=== PATIENT | female | born 1930 | race Caucasian/White ===

== ENCOUNTER 2017-03-03 13:41 | Emergency (ER) | payer MEDICARE, OTHER ==
[2017-03-03 13:59] VITALS: PULSE 70; O2SAT 97
--- NOTE | 2017-03-03 14:01 | ERPHSYRPT ---
- History of Present Illness Time Seen by Provider: 03/03/17 13:56 Source: patient Exam Limitations: clinical condition (dementia) Patient Subjective Stated Complaint: PT HERE PRE AMBULANCE FOR A FALL, PT WAS TRYING TO GET UP AND IS UNSTEADY,PT HAS DEMENTIA AND IS POOR HISTORIAN , PT DENIES ANY COS. 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 normally does not ambulate by self, but tried to walk by herself and fell. Pt. with laceration above R eye and also c/o R hip pain and possible R hip pain. Pt. had a witnessed fall and did not have any LOC. Pt. appropriate and within her normal MS baseline. Pt. without vomiting and moving all extremities spontaneously. States R hip pain but good ROM with R hip movement. Pt. has since put weight on R hip with some discomfort. Occurred: this morning Reason for Fall: lost balance, fell from standing pos Injuries/Pain Location: face, chest, pelvis Loss of Consciousness: no loss of consciousness Quality: dullness Severity of Pain-Max: mild Severity of Pain-Current: mild Modifying Factors: Improves With: immobilization (improves), movement (worsens) Associated Symptoms (Fall): confusion (baseline), No abdominal pain, No back pain, No chest pain, No extremity injury, No lightheadedness, No vision changes Allergies/Adverse Reactions: latex Allergy (Verified 03/03/17 13:58) Penicillins Allergy (Verified 03/03/17 13:58) Sulfa (Sulfonamide Antibiotics) Allergy (Verified 03/03/17 13:58) Home Medications: Donepezil HCl 10 mg [Aricept 10 MG] 10 mg PO HS 06/01/15 [History] Escitalopram Oxalate 10 mg [Lexapro 10 MG] 10 mg PO DAILY 06/01/15 [History] Gabapentin [Neurontin] 300 mg PO HS 06/01/15 [History] Memantine HCl [Namenda Xr] 28 mg PO DAILY 10/29/15 [History] Metformin HCl 500 mg [Glucophage 500 MG] 1 tab PO DAILY 03/15/16 [History] Lorazepam 1 mg [Ativan 1 MG] 1 mg PO HS 03/20/16 [History] Meloxicam 7.5 mg [Mobic 7.5 MG] 7.5 mg PO DAILY 03/03/17 [History] Hx Tetanus, Diphtheria Vaccination/Date Given: Yes Hx Influenza Vaccination/Date Given: Yes Hx Pneumococcal Vaccination/Date Given: Yes Immunizations Up to Date: Yes - Review of Systems Constitutional: No Fever, No Chills Eyes: No Symptoms Ears, Nose, & Throat: No Symptoms Respiratory: No Cough, No Dyspnea Cardiac: No Chest Pain, No Edema, No Syncope Abdominal/Gastrointestinal: No Abdominal Pain, No Nausea, No Vomiting, No Diarrhea Genitourinary Symptoms: No Dysuria Musculoskeletal: Joint Pain (R hip), No Back Pain, No Neck Pain Skin: Other (lac over R eye), No Rash Neurological: No Dizziness, No Focal Weakness, No Sensory Changes Psychological: No Symptoms Endocrine: No Symptoms Hematologic/Lymphatic: No Symptoms Immunological/Allergic: No Symptoms All Other Systems: Reviewed and Negative - Past Medical History Pertinent Past Medical History: Yes Neurological History: Dementia ENT History: No Pertinent History Cardiac History: High Cholesterol, Hypertension Respiratory History: No Pertinent History Endocrine Medical History: No Pertinent History Musculoskeletal History: No Pertinent History GI Medical History: No Pertinent History History: Other Psycho-Social History: Depression Female Reproductive Disorders: No Pertinent History Other Medical History: chronic lumbar pain - Past Surgical History Past Surgical History: Yes Neuro Surgical History: No Pertinent History Cardiac: No Pertinent History Respiratory: No Pertinent History Gastrointestinal: No Pertinent History Genitourinary: No Pertinent History Musculoskeletal: Joint Replacement Female Surgical History: Hysterectomy Other Surgical History: right hip replacement, left shoulder replacement, - Social History Smoking Status: Unknown if ever smoked Exposure to second hand smoke: No Alcohol Use: None Drug Use: none Patient Lives Alone: No Significant Family History: no pertinent family hx - Female History Hx Now: No - Nursing Vital Signs Nursing Vital Signs: Initial Vital Signs Temperature 97.0 F Temperature Source Oral Pulse Rate 70 Respiratory Rate 15 Blood Pressure [] 124/74 Pain Intensity 4 - Rebeca Coma Score Best Eye Response (Rebeca): (4) open spontaneously Best Verbal Response (Novi): (4) confused conversation Best Motor Response (Novi): (6) obeys commands Rebeca Total: 14 - Physical Exam General Appearance: no apparent distress, alert Head Injury: no evidence of injury Eye Exam: PERRL/EOMI, eyes nml inspection, other (2 cm superficial lac over R eye) ENT Exam: airway nml Neck Exam: normal inspection, No tenderness Respiratory/Chest Exam: normal breath sounds, No chest tenderness, No respiratory distress Cardiovascular Exam: normal heart sounds, regular rate/rhythm Gastrointestinal Exam: soft, No tenderness, No distention, No guarding, No ecchymosis Back Exam: normal inspection, No vertebral tenderness Extremity Exam: normal inspection, normal range of motion, pelvis stable, bony point tenderness, hip tenderness (Mild tenderness to R hip joint), No deformities, No pain with movement Neurologic Exam: alert, oriented x 3, cooperative, sensation nml, No motor deficits Skin Exam: normal color, warm, dry Procedures - Laceration/Wound Repair Right Eye Wound Location: Right Wound Length (cm): 2 Wound's Depth, Shape: superficial Wound Explored: clean Irrigated: Yes Hibiclens Prep: Yes Anesthesia: local, 1% Lidocaine Volume Anesthetic (ccs): 4 Wound Debrided: minimal Wound Repaired With: sutures Suture Size/Type: 5-0, nylon Number of Sutures: 6 Layer Closure?: No Sterile Dressing Applied?: Yes Splint Applied?: No Sling Applied?: No - Course Nursing assessment & vital signs reviewed: Yes - Radiology Exams Chest X-ray Interpretation: Discussed w/ radiologist, No Fracture, No Pneumonia Facial X-ray Interpretation: Teleradiologist Report, Negative, No Fracture Hip X-ray Interpretation: Teleradiologist Report, Negative, No Fracture Ordered Tests: Active Orders 24 hr Category Date Time Status CHEST 1 VIEW (PORTABLE) Stat Exams 03/03/17 14:01 Completed FACIAL BONES (MINIMUM 3 VIEWS) Stat Exams 03/03/17 14:03 Completed HIP UNI (2V) INCL PEL IF DONE Stat Exams 03/03/17 14:03 Completed Medication Summary Discontinued Medications Generic Name Dose Route Start Last Admin Trade Name Freq PRN Reason Stop Dose Admin Lidocaine HCl Confirm 03/03/17 15:01 Xylocaine 1% Hcl 20 Ml Mdv Administered 03/03/17 15:02 Dose 10 ml .ROUTE .STK-MED ONE - Progress Progress: improved Counseled pt/family regarding: diagnosis, rad results - Departure Time of Disposition: 15:38 Departure Disposition: Home Clinical Impression: Laceration of right eye, Multiple contusions Condition: Stable Critical Care Time: No Referrals: PUMA SPENCER MD [Primary Care Provider] - Instructions: Contusion, Care for a Laceration After Repair, Laceration Repair Additional Instructions: Tylenol for pain Sutures out in 5-7 days. Return for worse pain, redness, swelling, pus from area or any problems.
--- NOTE | 2017-03-03 14:33 | XRAY ---
Indication: Status post fall. Comparison: March 15, 2016. Portable chest less inflated today and remains clear. Heart and mediastinal structures within normal limits for AP portable technique. Stable subcarinal calcified node. Bony thorax intact again with osteopenia, degenerative changes, and left shoulder arthroplasty. Impression: Nonacute chest with chronic features.
--- NOTE | 2017-03-03 14:48 | XRAY ---
Indication: Pain following fall. Comparison: None AP pelvis and 2 views of the right hip demonstrates osteopenia, advanced left hip degenerative changes, lower lumbar degenerative changes, right hip arthroplasty with intact bipolar prosthesis, and scattered vascular calcifications. No other bony, articular, or soft tissue abnormalities. Impression: Nonacute exam with chronic features.
--- NOTE | 2017-03-03 14:52 | XRAY ---
Indication: Right eye bruising following fall. Comparison: None 3 projections of the facial bones demonstrates osteopenia, multilevel cervical degenerative facet arthropathy, and mild bilateral carotid calcifications. No acute fracture, suspicious bony lesions, or paranasal sinus opacity. Impression: Negative facial bone exam with incidental chronic features.
[2017-03-03] MEDS ORDERED: XYLOCAINE 1% HCL 20 ML MDV ONE ×2 (15:01→16:23)
[2017-03-03] MEDS ORDERED: BACIGUENT PACKET ONE (15:39)
[2017-03-03] MEDS ORDERED: BACIGUENT PACKET TP ONE (15:42)
[2017-03-03] MEDS ORDERED: XYLOCAINE 1% HCL 20 ML MDV IJ ONE (16:22)
[2017-03-03 16:42] VITALS: BP 128/72
== END 2017-03-03 16:42 | disposition home or self-care (01) ==
LOC: ED 13:41
PROC: 0HQ1XZZ Repair Face Skin, External Approach (ICD-10-PCS; principal; 2017-03-03)
DX: S01.111A Laceration without foreign body of right eyelid and periocular area, initial encounter (principal); W18.39XA Other fall on same level, initial encounter
CPT/HCPCS: 12011; 70150; 71010; 73502; 99283; A9270-GY

== ENCOUNTER 2018-02-23 08:46 | Emergency (ER) | payer MEDICARE, OTHER ==
--- NOTE | 2018-02-23 09:00 | ERPHSYRPT ---
- History of Present Illness Time Seen by Provider: 02/23/18 08:57 Source: patient, family, EMS Patient Subjective Stated Complaint: PT HERE FOR FALL AT [facility] TODAY. PT FELL AT ABOUT 0720 THIS MORNING, AND CO PAIN TO BOTH HIPS Triage Nursing Assessment: PT ARRIVED PER AMBULANCE, ALERT, WITH C COLLAR IN PLACE, CONFUSED WHICH IS NORMAL FOR HER. 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, no loc, no bleeding, mild to mod left hip pain, no emesis, hx dementia Allergies/Adverse Reactions: latex Allergy (Verified 03/03/17 13:58) Penicillins Allergy (Verified 03/03/17 13:58) Sulfa (Sulfonamide Antibiotics) Allergy (Verified 03/03/17 13:58) Home Medications: Donepezil HCl 10 mg [Aricept 10 MG] 10 mg PO HS 06/01/15 [History] Escitalopram Oxalate 10 mg [Lexapro 10 MG] 10 mg PO DAILY 06/01/15 [History] Gabapentin [Neurontin] 300 mg PO HS 06/01/15 [History] Memantine HCl [Namenda Xr] 28 mg PO DAILY 10/29/15 [History] Metformin HCl 500 mg [Glucophage 500 MG] 1 tab PO DAILY 03/15/16 [History] Lorazepam 1 mg [Ativan 1 MG] 1 mg PO HS 03/20/16 [History] Meloxicam 7.5 mg [Mobic 7.5 MG] 7.5 mg PO DAILY 03/03/17 [History] Hx Tetanus, Diphtheria Vaccination/Date Given: (UNSURE) Hx Influenza Vaccination/Date Given: Yes Hx Pneumococcal Vaccination/Date Given: Yes Immunizations Up to Date: Yes - Review of Systems Constitutional: No Fever Eyes: No Eye Redness Ears, Nose, & Throat: No Epistaxis Respiratory: No Dyspnea Cardiac: No Syncope Abdominal/Gastrointestinal: No Vomiting Musculoskeletal: Fall, No Back Pain, No Neck Pain Neurological: No Headache - Past Medical History Pertinent Past Medical History: Yes Neurological History: Dementia ENT History: No Pertinent History Cardiac History: High Cholesterol, Hypertension Respiratory History: No Pertinent History Endocrine Medical History: No Pertinent History Musculoskeletal History: No Pertinent History GI Medical History: No Pertinent History History: Other Psycho-Social History: Depression Female Reproductive Disorders: No Pertinent History Other Medical History: chronic lumbar pain - Past Surgical History Past Surgical History: Yes Neuro Surgical History: No Pertinent History Cardiac: No Pertinent History Respiratory: No Pertinent History Gastrointestinal: No Pertinent History Genitourinary: No Pertinent History Musculoskeletal: Joint Replacement Female Surgical History: Hysterectomy Other Surgical History: right hip replacement, left shoulder replacement, - Social History Smoking Status: Unknown if ever smoked Exposure to second hand smoke: No Alcohol Use: None Drug Use: none Patient Lives Alone: No (CORRECTION) Significant Family History: no pertinent family hx - Female History Hx Last Menstrual Period: POST Hx Now: No - Nursing Vital Signs Nursing Vital Signs: Initial Vital Signs Temperature 97.9 F 02/23/18 08:47 Pulse Rate 60 02/23/18 08:47 Respiratory Rate 16 02/23/18 08:47 Blood Pressure 166/79 02/23/18 08:47 O2 Sat by Pulse Oximetry 98 02/23/18 08:47 Pain Scale Pain Intensity 0 - [place] Coma Score Best Eye Response ([place]): (4) open spontaneously Best Verbal Response (Rebeca): (4) confused conversation Best Motor Response ([place]): (5) localizes to pain Rebeca Total: 13 - Physical Exam General Appearance: no apparent distress Head Injury: No Mcnamara's Sign, No ecchymosis Eye Exam: PERRL/EOMI ENT Exam: airway nml Neck Exam: c-collar in place Respiratory/Chest Exam: normal breath sounds, No respiratory distress Cardiovascular Exam: normal heart sounds Gastrointestinal Exam: soft, No rebound Back Exam: No vertebral tenderness Extremity Exam: pelvis stable Neurologic Exam: alert, No oriented x 3 Skin Exam: warm, dry SpO2 Interpretation: normal SpO2: 98 Oxygen Delivery: Room Air - Course Nursing assessment & vital signs reviewed: Yes EKG Interpreted by Me: Other (nsr 55, lateral t abn, no stemi) - Radiology Exams Hip X-ray Interpretation: Discussed w/ radiologist, No Fracture - CT Exams Head CT Interpretation: Negative, Discussed w/radiologist Cervical Spine CT Interpretation: Negative, Discussed w/radiologist Maxillofacial Bones CT Interpretation: Negative, Discussed w/radiologist Ordered Tests: Active Orders 24 hr Category Date Time Status Internet Merchant STAT Care 02/23/18 08:56 Active EKG-ER Only STAT Care 02/23/18 08:55 Active IV Insertion STAT Care 02/23/18 08:55 Active CERVICAL SPINE WO CONTRAST [CT] Stat Exams 02/23/18 09:05 Completed FACIAL BONES WO CONTRAST [CT] Stat Exams 02/23/18 10:47 Completed HEAD WITHOUT CONTRAST [CT] Stat Exams 02/23/18 08:54 Completed HIPS ABY(2V) INCL PEL IF DONE Stat Exams 02/23/18 09:32 Completed CBC W DIFF Stat Lab 02/23/18 10:08 Completed CK-Creatinine Phosphokinase Stat Lab 02/23/18 10:08 Completed CMP Stat Lab 02/23/18 10:08 Completed PROTIME WITH INR Stat Lab 02/23/18 10:08 Completed TROPONIN Q3H Lab 02/23/18 10:08 Completed TROPONIN Q3H Lab 02/23/18 12:05 Completed TROPONIN Q3H Lab 02/23/18 15:00 Ordered TROPONIN Q3H Lab 02/23/18 18:00 Ordered TROPONIN Q3H Lab 02/23/18 21:00 Ordered Lab/Rad Data: Laboratory Result Diagrams 02/23/18 10:08 02/23/18 10:08 Laboratory Results 02/23/18 02/23/18 02/23/18 Range/Units 12:05 10:08 10:08 WBC (4.0-10.5) K/mm3 RBC (4.1-5.4) M/mm3 Hgb (12.0-16.0) gm/dl Hct (35-47) % MCV (78-100) fl MCH (26-32) pg MCHC (32-36) g/dl RDW (11.5-14.0) % Plt Count (150-450) K/mm3 MPV (6-9.5) fl Gran % (36.0-66.0) % Eos # (Auto) (0-0.5) Absolute Lymphs (auto) (1.0-4.6) Absolute Monos (auto) (0.0-1.3) Lymphocytes % (24.0-44.0) % Monocytes % (0.0-12.0) % Eosinophils % (0.00-5.0) % Basophils % (0.0-0.4) % Absolute Granulocytes (1.4-6.9) Basophils # (0-0.4) PT 13.1 H (9.95-12.35) SECONDS INR 1.13 (0.8-3.0) Sodium (137-145) mmol/L Potassium (3.5-5.1) mmol/L Chloride (98-107) mmol/L Carbon Dioxide (22-30) mmol/L Anion Gap (5-15) MEQ/L BUN (7-17) mg/dL Creatinine (0.52-1.04) mg/dL Estimated GFR ML/MIN Glucose (74-106) mg/dL Calcium (8.4-10.2) mg/dL Total Bilirubin (0.2-1.3) mg/dL AST (14-36) U/L ALT (0-35) U/L Alkaline Phosphatase (38-126) U/L Creatine Kinase (30-135) U/L Troponin I < 0.012 < 0.012 (0.000-0.034) ng/mL Serum Total Protein (6.3-8.2) g/dL Albumin (3.5-5.0) g/dL 02/23/18 02/23/18 Range/Units 10:08 10:08 WBC 6.2 (4.0-10.5) K/mm3 RBC 4.45 (4.1-5.4) M/mm3 Hgb 13.7 (12.0-16.0) gm/dl Hct 41.2 (35-47) % MCV 92.6 (78-100) fl MCH 30.8 (26-32) pg MCHC 33.3 (32-36) g/dl RDW 12.8 (11.5-14.0) % Plt Count 191 (150-450) K/mm3 MPV 11.0 H (6-9.5) fl Gran % 70.1 H (36.0-66.0) % Eos # (Auto) 0.14 (0-0.5) Absolute Lymphs (auto) 1.17 (1.0-4.6) Absolute Monos (auto) 0.52 (0.0-1.3) Lymphocytes % 18.9 L (24.0-44.0) % Monocytes % 8.4 (0.0-12.0) % Eosinophils % 2.3 (0.00-5.0) % Basophils % 0.3 (0.0-0.4) % Absolute Granulocytes 4.35 (1.4-6.9) Basophils # 0.02 (0-0.4) PT (9.95-12.35) SECONDS INR (0.8-3.0) Sodium 143 (137-145) mmol/L Potassium 4.3 (3.5-5.1) mmol/L Chloride 106 (98-107) mmol/L Carbon Dioxide 28 (22-30) mmol/L Anion Gap 12.8 (5-15) MEQ/L BUN 21 H (7-17) mg/dL Creatinine 0.70 (0.52-1.04) mg/dL Estimated GFR > 60.0 ML/MIN Glucose 108 H (74-106) mg/dL Calcium 9.6 (8.4-10.2) mg/dL Total Bilirubin 0.70 (0.2-1.3) mg/dL AST 18 (14-36) U/L ALT 11 (0-35) U/L Alkaline Phosphatase 61 (38-126) U/L Creatine Kinase 55 (30-135) U/L Troponin I (0.000-0.034) ng/mL Serum Total Protein 7.6 (6.3-8.2) g/dL Albumin 4.3 (3.5-5.0) g/dL - Progress Progress: unchanged Counseled pt/family regarding: diagnosis, need for follow-up, rad results - Departure Time of Disposition: 13:32 Departure Disposition: Extended Care Facility Clinical Impression: Multiple contusions Condition: Stable Critical Care Time: No Referrals: PUMA SPENCER MD [Primary Care Provider] - Instructions: Contusion (DC) Additional Instructions: ice and tylenol, continue present medical regimen, return if worse, see your doctor
--- NOTE | 2018-02-23 09:42 | XRAY ---
Indication: Pain following fall. Multiple contiguous axial images obtained through the cervical spine. Sagittal and coronal reformatted images obtained. Comparison: None Age-related osteopenia. Small superior C7 Schmorl node. Axial images negative for acute fracture, suspicious bony lesions, or spinal canal stenosis. Minimal multilevel endplate spurring and moderate multilevel bilateral degenerative facet arthropathy. Sagittal and coronal reformatted images demonstrates very minimal anterolisthesis of C4 on C5 on C6 on C7 on T1. No acute compression fracture or jumped facet. Normal-appearing craniocervical junction. Visualized noncontrasted soft tissues demonstrates mild scattered carotid calcifications bilaterally. 1.5 cm right thyroid hypodense nodule/cyst. Lung apices clear. CT head reported separately. Impression: 1. Negative for acute fracture. 2. Multilevel degenerative changes including minimal C4-T1 spondylolisthesis. 3. Incidental osteopenia, C7 Schmorl node, and right thyroid hypodense nodule/cyst. CT DI 52.21
--- NOTE | 2018-02-23 09:44 | XRAY ---
Indication: Pain following fall. Multiple contiguous axial images obtained through the head without contrast. Comparison: None Age-appropriate global atrophy and mild periventricular degenerative micro-ischemia bilaterally. No acute intracranial hemorrhage, abnormal extra-axial fluid collection, or mass effect. Fourth ventricle is midline without hydrocephalus. Bony calvarium intact. Visualized paranasal sinuses and mastoid air cells are clear. Impression: Nonacute senile brain. CT DI 52.21
--- NOTE | 2018-02-23 09:45 | XRAY ---
Indication: Pain following fall. Comparison: Right hip exam March 03, 2017. AP pelvis and 2 views of the left and right hip again demonstrates osteopenia, scattered vascular calcifications, and right hip arthroplasty with intact bipolar prosthesis. Moderate/advanced degenerative changes of the left hip and mild degenerative changes of the visualized lower lumbar spine. No other bony, articular, or soft tissue abnormalities. Impression: 1. Negative acute fracture/dislocation. 2. Incidental osteopenia, degenerative changes, and right hip arthroplasty.
[2018-02-23 10:16] LABS: BASOPHIL % 0.3 % (0.0-0.4); Basophil (Absolute #) 0.02 (0-0.4); Eosinophil % 2.3 % (0.00-5.0); Eosinophil (Absolute #) 0.14 (0-0.5); Granulocyte Absolute (ANC) 4.35 (1.4-6.9); Granulocytes % 70.1 % (36.0-66.0); Hematocrit 41.2 % (35-47); Hemoglobin 13.7 gm/dl (12.0-16.0); Lymphocyte (Absolute #) 1.17 (1.0-4.6); Lymphocytes % 18.9 % (24.0-44.0); Mean Cell Volume 92.6 fl (78-100); Mean Corpuscular Hemoglobin 30.8 pg (26-32); Mean Corpuscular Hgb Concent. 33.3 g/dl (32-36); Monocyte (Absolute #) 0.52 (0.0-1.3); Monocytes % 8.4 % (0.0-12.0); Platelet Count 191 K/mm3 (150-450); Red Blood Count 4.45 M/mm3 (4.1-5.4); Red Cell Distribution Width 12.8 % (11.5-14.0); White Blood Count 6.2 K/mm3 (4.0-10.5)
[2018-02-23 10:28] LABS: ALBUMIN 4.3 g/dL (3.5-5.0); ALKALINE PHOSPHATASE 61 U/L (38-126); ANION GAP 12.8 MEQ/L (5-15); BLOOD UREA NITROGEN 21 mg/dL (7-17); CHLORIDE 106 mmol/L (98-107); CK-Creatinine Phosphokinase 55 U/L (30-135); Calcium 9.6 mg/dL (8.4-10.2); Carbon Dioxide 28 mmol/L (22-30); Glucose 108 mg/dL (74-106); Potassium 4.3 mmol/L (3.5-5.1); SGOT/AST 18 U/L (14-36); SGPT/ALT 11 U/L (0-35); SODIUM 143 mmol/L (137-145); Total Protein 7.6 g/dL (6.3-8.2)
[2018-02-23 11:09] LABS: INR 1.13 (0.8-3.0)
--- NOTE | 2018-02-23 11:24 | XRAY ---
Indication: Mandible bruising following fall. Multiple contiguous axial images obtained through the facial bones. Sagittal and coronal reformatted images obtained. Comparison: March 03, 2017. No acute fracture, suspicious bony lesions, or radiopaque foreign body. Orbits including roof, gonzalez, and floors intact. Again little dentition in the lower mouth and none in the upper. Paranasal sinuses and nasal passages clear. Visualized noncontrasted soft tissues demonstrates again mild bilateral carotid calcifications. Base of the brain unremarkable. Stable multilevel cervical degenerative changes. Impression: 1. Again negative acute fracture. 2. Stable incidental chronic findings. CTDI 59.47
[2018-02-23 13:35] VITALS: BP 150/69; PULSE 71; O2SAT 95
== END 2018-02-23 13:46 | disposition home or self-care (01) ==
LOC: ED 08:46
DX: S70.02XA Contusion of left hip, initial encounter (principal); S70.01XA Contusion of right hip, initial encounter; M25.552 Pain in left hip; M25.551 Pain in right hip; W19.XXXA Unspecified fall, initial encounter; Y92.129 Unspecified place in nursing home as the place of occurrence of the external cause; F03.90 Unspecified dementia, unspecified severity, without behavioral disturbance, psychotic disturbance, mood disturbance, and anxiety
CPT/HCPCS: 36000; 36415; 70450; 70486; 72125; 73521; 80053; 82550; 84484; 85025; 85610; 93005; 93041; 99284

== ENCOUNTER 2019-01-21 07:10 | Observation (INO) | payer MEDICARE, OTHER ==
[2019-01-21] MEDS ORDERED: Sodium Chloride 0.9% 1000 ML 1,000 ML IV SCH (07:30)
[2019-01-21 07:34] LABS: Lactic Acid 3.3 (0.4-2.0)
[2019-01-21 07:35] LABS: VBG BASE EXCESS 0.7 (-2.0-2.0); VBG CARBOXYHEMOGLOBIN 2.9 % T HGB (0.0-6.9); VBG HEMOGLOBIN 13.9; VBG O2 SATURATION 85.1 (95-100); VBG pH 7.39 (7.32-7.42)
--- NOTE | 2019-01-21 07:39 | ERPHSYRPT ---
- History of Present Illness Time Seen by Provider: 01/21/19 07:33 Source: family Exam Limitations: other (patient with chronic dementia) Physician History: 88-year-old white female with history of chronic dementia, hyperlipidemia, high blood pressure, depression, chronic lumbar pain Patient arrives with complaints at the skilled nursing that patient was difficult to wake up she apparently required's sternal rub to wake her up yesterday and today she's had a fever at home. Family feels like the patient is "more sluggish" than normal Patient apparently does not walk she is chronically demented Past medical history includes dementia, hyperlipidemia, high blood pressure, depression, chronic lumbar pain Past surgical history includes hysterectomy, right hip replacement left shoulder replacement Timing/Duration: yesterday Modifying Factors: Improves With: nothing Associated Symptoms: vomiting (vomited yesterday), fever, No nausea, No abdominal pain, No shortness of breath, No heartburn, No diaphoresis, No cough, No chills, No chest pain, No headaches, No loss of appetite, No malaise, No rash , No syncope, No seizure, No weakness (discharge decided that Y head CT R think that this is her normal) Allergies/Adverse Reactions: latex Allergy (Verified 01/21/19 07:45) Penicillins Allergy (Verified 01/21/19 07:45) Sulfa (Sulfonamide Antibiotics) Allergy (Verified 01/21/19 07:45) Home Medications: Escitalopram Oxalate 10 mg [Lexapro 10 MG] 10 mg PO DAILY 06/01/15 [History] Gabapentin [Neurontin] 300 mg PO HS 06/01/15 [History] Metformin HCl 500 mg [Glucophage 500 MG] 1 tab PO DAILY 03/15/16 [History] Lorazepam 1 mg [Ativan 1 MG] 0.5 mg PO HS 03/20/16 [History] Meloxicam 7.5 mg [Mobic 7.5 MG] 7.5 mg PO DAILY 03/03/17 [History] Hx Tetanus, Diphtheria Vaccination/Date Given: (UNSURE) Hx Influenza Vaccination/Date Given: Yes Hx Pneumococcal Vaccination/Date Given: Yes - Review of Systems Constitutional: Fever, Weakness, No Chills, No Fatigue, No Lethargy, No Malaise , No Night Sweats, No Weight Loss Eyes: No Symptoms Ears, Nose, & Throat: No Symptoms Respiratory: No Cough, No Dyspnea Cardiac: No Chest Pain, No Edema, No Syncope Abdominal/Gastrointestinal: No Abdominal Pain, No Nausea, No Vomiting, No Diarrhea Genitourinary Symptoms: No Dysuria Musculoskeletal: No Back Pain, No Neck Pain Skin: No Rash Psychological: Other (difficult to arouse at skilled nursing this morning) Endocrine: No Symptoms All Other Systems: Reviewed and Negative - Past Medical History Pertinent Past Medical History: Yes Neurological History: Dementia ENT History: No Pertinent History Cardiac History: High Cholesterol, Hypertension Respiratory History: No Pertinent History Endocrine Medical History: No Pertinent History Musculoskeletal History: No Pertinent History GI Medical History: No Pertinent History History: Other Psycho-Social History: Depression Female Reproductive Disorders: No Pertinent History Other Medical History: chronic lumbar pain - Past Surgical History Past Surgical History: Yes Neuro Surgical History: No Pertinent History Cardiac: No Pertinent History Respiratory: No Pertinent History Gastrointestinal: No Pertinent History Genitourinary: No Pertinent History Musculoskeletal: Joint Replacement Female Surgical History: Hysterectomy Other Surgical History: right hip replacement, left shoulder replacement, - Social History Smoking Status: Unknown if ever smoked Exposure to second hand smoke: No Alcohol Use: None Drug Use: none Patient Lives Alone: No (CORRECTION) Significant Family History: no pertinent family hx - Nursing Vital Signs Nursing Vital Signs: Initial Vital Signs Temperature 98.2 F 01/21/19 07:27 Pulse Rate 79 01/21/19 07:27 Respiratory Rate 20 01/21/19 07:27 Blood Pressure 113/63 01/21/19 07:27 O2 Sat by Pulse Oximetry 96 01/21/19 07:27 Pain Scale Pain Intensity 0 - Physical Exam General Appearance: other (elderly-appearing white female oriented to herself) Eye Exam: PERRL/EOMI, eyes nml inspection Ears, Nose, Throat Exam: normal ENT inspection, TMs normal, pharynx normal, moist mucous membranes Neck Exam: normal inspection, non-tender, supple, full range of motion Respiratory Exam: normal breath sounds, lungs clear, No respiratory distress Cardiovascular Exam: regular rate/rhythm, normal heart sounds, normal peripheral pulses, capillary refill <2 sec Gastrointestinal/Abdomen Exam: soft, normal bowel sounds, No tenderness, No mass Back Exam: normal inspection, normal range of motion, No CVA tenderness, No vertebral tenderness Extremity Exam: normal inspection (the), normal range of motion, pelvis stable Neurologic Exam: alert (is: History), oriented x 3, 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, 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, normal mood/affect, nml cerebellar function, nml station & gait, sensation nml, No motor deficits Skin Exam: normal color, warm, dry, No rash Lymphatic Exam: No adenopathy SpO2 Interpretation: normal (95%) - Course Nursing assessment & vital signs reviewed: Yes EKG Interpreted by Me: RATE (82 bpm), NORMAL AXIS, Other (EKG: Sinus arrhythmia , 82 bpm, normal axis, slight ST depression in leads 1 and aVL, no acute ST or T wave changes compared to February 23, 2018) - Radiology Exams Chest X-ray Interpretation: Interpreted by me (chest x-ray: Impression: No acute disease process noted.) Ordered Tests: Active Orders 24 hr Category Date Time Status EKG-ER Only STAT Care 01/21/19 07:26 Active IV Insertion STAT Care 01/21/19 07:26 Active CHEST 1 VIEW (PORTABLE) Stat Exams 01/21/19 07:27 Taken AMYLASE Stat Lab 01/21/19 07:26 Completed BLOOD CULTURE Stat Lab 01/21/19 08:00 Received CBC W DIFF Stat Lab 01/21/19 07:30 Completed CMP Stat Lab 01/21/19 07:26 Completed CULTURE,URINE Stat Lab 01/21/19 07:45 Received LIPASE Stat Lab 01/21/19 07:26 Completed Lactic Acid Stat Lab 01/21/19 07:30 Results TROPONIN Q3H Lab 01/21/19 07:30 Completed TROPONIN Q3H Lab 01/21/19 10:30 Ordered TROPONIN Q3H Lab 01/21/19 13:30 Ordered TROPONIN Q3H Lab 01/21/19 16:30 Ordered TROPONIN Q3H Lab 01/21/19 19:30 Ordered UA W/RFX UR CULTURE Stat Lab 01/21/19 07:45 Completed VENOUS BLOOD GAS Stat Lab 01/21/19 07:30 Completed Medication Summary Generic Name Dose Route Start Last Admin Trade Name Freq PRN Reason Stop Dose Admin Sodium Chloride 1,000 mls @ 100 mls/hr 01/21/19 07:30 01/21/19 08:03 Sodium Chloride 0.9% 1000 Ml IV 02/20/19 07:29 100 mls/hr .Q10H JACK Administration Discontinued Medications Generic Name Dose Route Start Last Admin Trade Name Sonal PRN Reason Stop Dose Admin Ceftriaxone Sodium/Dextrose 1 g in 50 mls @ 100 mls/hr 01/21/19 08:03 08:20 Rocephin 1 Gm-D5w 50 Ml Bag IV 01/21/19 08:32 100 mls/hr STAT STA 100 mls/hr Administration Ceftriaxone Sodium/Dextrose Confirm 01/21/19 08:06 Rocephin 1 Gm-D5w 50 Ml Bag Administered 01/21/19 08:07 Dose 1 g in 50 mls @ ud IV .STK-MED ONE Lab/Rad Data: Laboratory Result Diagrams 01/21/19 07:30 01/21/19 07:26 Laboratory Results 01/21/19 01/21/19 01/21/19 Range/Units 07:45 07:30 07:30 WBC (4.0-10.5) K/mm3 RBC (4.1-5.4) M/mm3 Hgb (12.0-16.0) gm/dl Hct (35-47) % MCV (78-100) fl MCH (26-32) pg MCHC (32-36) g/dl RDW (11.5-14.0) % Plt Count (150-450) K/mm3 MPV (6-9.5) fl Gran % (36.0-66.0) % Eos # (Auto) (0-0.5) Absolute Lymphs (auto) (1.0-4.6) Absolute Monos (auto) (0.0-1.3) Lymphocytes % (24.0-44.0) % Monocytes % (0.0-12.0) % Eosinophils % (0.00-5.0) % Basophils % (0.0-0.4) % Absolute Granulocytes (1.4-6.9) Basophils # (0-0.4) pO2/FiO2 Ratio 21.0 % VBG pH 7.39 (7.32-7.42) VBG pCO2 at Pat Temp 43 (42-55) mm/Hg VBG pO2 at Pat Temp 44 H (25-40) mm/Hg VBG HCO3 26.0 (22-28) meq/L VBG O2 Sat (Luz [place]) 85.1 L (95-100) VBG Base Excess 0.7 (-2.0-2.0) VBG Hemoglobin 13.9 VBG Carboxyhemoglobin 2.9 (0.0-6.9) % T HGB POC Potassium 4.0 (3.5-5.1) Sodium (137-145) mmol/L Potassium (3.5-5.1) mmol/L Chloride (98-107) mmol/L Carbon Dioxide (22-30) mmol/L Anion Gap (5-15) MEQ/L BUN (7-17) mg/dL Creatinine (0.52-1.04) mg/dL Estimated GFR ML/MIN Glucose (74-106) mg/dL Lactic Acid (0.4-2.0) Calcium (8.4-10.2) mg/dL Total Bilirubin (0.2-1.3) mg/dL AST (14-36) U/L ALT (0-35) U/L Alkaline Phosphatase (38-126) U/L Troponin I 0.021 (0.000-0.034) ng/mL Serum Total Protein (6.3-8.2) g/dL Albumin (3.5-5.0) g/dL Amylase (30-110) U/L Lipase (23-300) U/L Urine Color IRON (YELLOW) Urine Appearance CLOUDY (CLEAR) Urine pH 5.0 (5-6) Ur Specific [place] 1.025 (1.005-1.025) Urine Protein 30 (Negative) Urine Ketones NEGATIVE (NEGATIVE) Urine Blood MODERATE (0-5) José Antonio/ul Urine Nitrite NEGATIVE (NEGATIVE) Urine Bilirubin NEGATIVE (NEGATIVE) Urine Urobilinogen 4 (0-1) mg/dL Ur Leukocyte Esterase NEGATIVE (NEGATIVE) Urine WBC (Auto) 6-10 (0-5) /HPF Urine RBC (Auto) 3-5 (0-2) /HPF U Epithel Cells (Auto) RARE (FEW) /HPF Urine Bacteria (Auto) PACKED (NEGATIVE) /HPF Urine Mucus (Auto) MANY (NEGATIVE) /HPF Urine Culture Reflexed YES (NO) Urine Glucose NEGATIVE (NEGATIVE) mg/dL 01/21/19 01/21/19 01/21/19 Range/Units 07:30 07:30 07:26 WBC 15.5 H (4.0-10.5) K/mm3 RBC 4.33 (4.1-5.4) M/mm3 Hgb 13.2 (12.0-16.0) gm/dl Hct 40.7 (35-47) % MCV 94.0 (78-100) fl MCH 30.5 (26-32) pg MCHC 32.4 (32-36) g/dl RDW 12.8 (11.5-14.0) % Plt Count 275 (150-450) K/mm3 MPV 11.7 H (6-9.5) fl Gran % 81.2 H (36.0-66.0) % Eos # (Auto) 0.02 (0-0.5) Absolute Lymphs (auto) 1.38 (1.0-4.6) Absolute Monos (auto) 1.50 H (0.0-1.3) Lymphocytes % 8.9 L (24.0-44.0) % Monocytes % 9.7 (0.0-12.0) % Eosinophils % 0.1 (0.00-5.0) % Basophils % 0.1 (0.0-0.4) % Absolute Granulocytes 12.53 H (1.4-6.9) Basophils # 0.02 (0-0.4) pO2/FiO2 Ratio % VBG pH (7.32-7.42) VBG pCO2 at Pat Temp (42-55) mm/Hg VBG pO2 at Pat Temp (25-40) mm/Hg VBG HCO3 (22-28) meq/L VBG O2 Sat (Luz Maria) (95-100) VBG Base Excess (-2.0-2.0) VBG Hemoglobin VBG Carboxyhemoglobin (0.0-6.9) % T HGB POC Potassium (3.5-5.1) Sodium 142 (137-145) mmol/L Potassium 4.3 (3.5-5.1) mmol/L Chloride 103 (98-107) mmol/L Carbon Dioxide 25 (22-30) mmol/L Anion Gap 18.3 H (5-15) MEQ/L BUN 37 H (7-17) mg/dL Creatinine 0.91 (0.52-1.04) mg/dL Estimated GFR > 60.0 ML/MIN Glucose 132 H (74-106) mg/dL Lactic Acid 3.3 H (0.4-2.0) Calcium 9.9 (8.4-10.2) mg/dL Total Bilirubin 1.50 H (0.2-1.3) mg/dL AST 21 (14-36) U/L ALT 14 (0-35) U/L Alkaline Phosphatase 63 (38-126) U/L Troponin I (0.000-0.034) ng/mL Serum Total Protein 7.2 (6.3-8.2) g/dL Albumin 3.8 (3.5-5.0) g/dL Amylase 59 (30-110) U/L Lipase 38 (23-300) U/L Urine Color (YELLOW) Urine Appearance (CLEAR) Urine pH (5-6) Ur Specific [place] (1.005-1.025) Urine Protein (Negative) Urine Ketones (NEGATIVE) Urine Blood (0-5) José Antonio/ul Urine Nitrite (NEGATIVE) Urine Bilirubin (NEGATIVE) Urine Urobilinogen (0-1) mg/dL Ur Leukocyte Esterase (NEGATIVE) Urine WBC (Auto) (0-5) /HPF Urine RBC (Auto) (0-2) /HPF U Epithel Cells (Auto) (FEW) /HPF Urine Bacteria (Auto) (NEGATIVE) /HPF Urine Mucus (Auto) (NEGATIVE) /HPF Urine Culture Reflexed (NO) Urine Glucose (NEGATIVE) mg/dL - Progress Progress: improved Progress Note: 01/21/19 07:39 88-year-old white female brought by medics from skilled nursing patient apparently had decreased level of consciousness at the skilled nursing difficult to arouse both yesterday and today she's had a fever and she is also vomited at yesterday. Patient is alert she is oriented to herself she is able to move her extremities she chronically does not walk. Family feels like she is sluggish but no new focal movement problems. I've been informed the patient's lactate is 3.3 Will start normal saline at 150 mL per hour. CBC CMP blood cultures urine chest x-ray EKG troponin have been obtained 01/21/19 08:05 Patient with states stable vitals good perfusion to all extremities pulse ox 96 % on room air. Patient's lactate is elevated but does not appear to be septic she is however receiving normal saline at 150 mL per hour have also ordered Rocephin 1 g IV. 01/21/19 08:49 I've discussed patient's case with Dr. Spencer. Will place patient on normal saline 150 mL per hour. Continue IV Rocephin . Diagnosis UTI. Dehydration. Decrease LOC. Elevated lactate. - Departure Departure Disposition: Observation Clinical Impression: Dehydration, Elevated serum lactate dehydrogenase Altered mental status Qualifiers: Altered mental status type: unspecified Qualified Code(s): R41.82 - Altered mental status, unspecified UTI (urinary tract infection) Qualifiers: Urinary tract infection type: site unspecified Hematuria presence: without hematuria Qualified Code(s): N39.0 - Urinary tract infection, site not specified Condition: Fair Critical Care Time: No Referrals: PUMA SPENCER MD [Primary Care Provider] -
[2019-01-21] MEDS ORDERED: ROCEPHIN 1 Gm-D5w 50 ml Bag** 1 G/50 ML IVPB IV STA (08:03)
[2019-01-21] MEDS ORDERED: ROCEPHIN 1 Gm-D5w 50 ml Bag** 1 G/50 ML IVPB IV ONE (08:06)
[2019-01-21 08:22] LABS: Appearance CLOUDY (CLEAR); Bacteria PACKED /HPF (NEGATIVE); Bilirubin NEGATIVE (NEGATIVE); Blood MODERATE Ery/ul (0-5); Epithelial Cells RARE /HPF (FEW); Glucose NEGATIVE (NEGATIVE); Ketones NEGATIVE (NEGATIVE); Leukocyte Esterase NEGATIVE (NEGATIVE); Mucus MANY /HPF (NEGATIVE); Nitrite NEGATIVE (NEGATIVE); Protein,Urine Dip 30 (Negative); Specific Gravity 1.025 (1.005-1.025); Urobilinogen 4 mg/dL (0-1)
[2019-01-21 08:25] LABS: BASOPHIL % 0.1 % (0.0-0.4); Basophil (Absolute #) 0.02 (0-0.4); Eosinophil % 0.1 % (0.00-5.0); Eosinophil (Absolute #) 0.02 (0-0.5); Granulocyte Absolute (ANC) 12.53 (1.4-6.9); Granulocytes % 81.2 % (36.0-66.0); Hematocrit 40.7 % (35-47); Hemoglobin 13.2 gm/dl (12.0-16.0); Lymphocyte (Absolute #) 1.38 (1.0-4.6); Lymphocytes % 8.9 % (24.0-44.0); Mean Corpuscular Hemoglobin 30.5 pg (26-32); Mean Corpuscular Hgb Concent. 32.4 g/dl (32-36); Mean Platelet Volume 11.7 fl (6-9.5); Monocytes % 9.7 % (0.0-12.0); Platelet Count 275 K/mm3 (150-450); Red Blood Count 4.33 M/mm3 (4.1-5.4); Red Cell Distribution Width 12.8 % (11.5-14.0); White Blood Count 15.5 K/mm3 (4.0-10.5)
[2019-01-21 08:25] LABS: ALBUMIN 3.8 g/dL (3.5-5.0); ALKALINE PHOSPHATASE 63 U/L (38-126); AMYLASE 59 U/L (30-110); ANION GAP 18.3 MEQ/L (5-15); BLOOD UREA NITROGEN 37 mg/dL (7-17); CHLORIDE 103 mmol/L (98-107); Calcium 9.9 mg/dL (8.4-10.2); Carbon Dioxide 25 mmol/L (22-30); Creatinine 1 0.91 mg/dL (0.52-1.04); Glucose 132 mg/dL (74-106); LIPASE 38 U/L (23-300); Potassium 4.3 mmol/L (3.5-5.1); SGOT/AST 21 U/L (14-36); SGPT/ALT 14 U/L (0-35); SODIUM 142 mmol/L (137-145); Total Protein 7.2 g/dL (6.3-8.2)
--- NOTE | 2019-01-21 09:18 | XRAY ---
Indication: Weakness. Loss of consciousness. Comparison: March 03, 2017. Portable chest remains clear. Heart is not enlarged again with aortic calcifications. Bony thorax intact again with osteopenia, degenerative changes, and left shoulder arthroplasty. Impression: Stable nonacute chest with chronic features.
[2019-01-21] MEDS ORDERED: Senokot-S Tablet PO PRN (14:41)
[2019-01-21] MEDS ORDERED: TYLENOL 325 MG PO PRN (14:41)
[2019-01-21] MEDS ORDERED: MILK OF MAGNESIA 30 ML PO PRN (14:41)
[2019-01-21] MEDS ORDERED: IMODIUM 2 MG PO PRN (14:45)
[2019-01-21] MEDS ORDERED: PREPARATION H Ointment RC PRN (15:00)
[2019-01-21] MEDS: Mobic 7.5 MG PO SCH (15:59)
[2019-01-21] MEDS: Sodium Chloride 0.9% 1000 ML 1,000 ML IV SCH ×2 (15:59→22:46)
[2019-01-21] MEDS: Lexapro 10 MG PO SCH (15:59)
[2019-01-21] MEDS: Glucophage 500 MG PO SCH (16:08)
[2019-01-21] MEDS ORDERED: NEURONTIN 300 MG PO SCH (22:00)
[2019-01-21] MEDS ORDERED: Ativan 0.5 MG PO SCH (22:00)
[2019-01-21] MEDS ORDERED: Ativan 1 MG PO SCH (22:00)
[2019-01-22 05:53] LABS: BASOPHIL % 0.2 % (0.0-0.4); Basophil (Absolute #) 0.02 (0-0.4); Eosinophil % 4.4 % (0.00-5.0); Eosinophil (Absolute #) 0.43 (0-0.5); Granulocyte Absolute (ANC) 7.07 (1.4-6.9); Granulocytes % 72.6 % (36.0-66.0); Hematocrit 35.2 % (35-47); Hemoglobin 11.2 gm/dl (12.0-16.0); Lymphocyte (Absolute #) 1.44 (1.0-4.6); Lymphocytes % 14.8 % (24.0-44.0); Mean Cell Volume 94.9 fl (78-100); Mean Corpuscular Hgb Concent. 31.8 g/dl (32-36); Mean Platelet Volume 10.9 fl (6-9.5); Monocyte (Absolute #) 0.78 (0.0-1.3); Platelet Count 234 K/mm3 (150-450); Red Blood Count 3.71 M/mm3 (4.1-5.4); Red Cell Distribution Width 12.7 % (11.5-14.0); White Blood Count 9.7 K/mm3 (4.0-10.5)
[2019-01-22 06:04] LABS: Mean Corpuscular Hemoglobin 30.1 pg (26-32)
[2019-01-22 06:11] LABS: ALBUMIN 3.4 g/dL (3.5-5.0); ALKALINE PHOSPHATASE 51 U/L (38-126); ANION GAP 13.6 MEQ/L (5-15); BLOOD UREA NITROGEN 22 mg/dL (7-17); CHLORIDE 107 mmol/L (98-107); Calcium 8.8 mg/dL (8.4-10.2); Carbon Dioxide 25 mmol/L (22-30); Creatinine 1 0.68 mg/dL (0.52-1.04); Glucose 95 mg/dL (74-106); Potassium 3.7 mmol/L (3.5-5.1); SGOT/AST 20 U/L (14-36); SGPT/ALT 10 U/L (0-35); SODIUM 142 mmol/L (137-145)
[2019-01-22 07:24] VITALS: O2SAT 94
[2019-01-22] MEDS: Sodium Chloride 0.9% 1000 ML 1,000 ML IV SCH (08:15)
[2019-01-22] MEDS ORDERED: Sodium Chloride 0.9% 1000 ML 1,000 ML IV SCH (10:00)
[2019-01-22] MEDS ORDERED: ROCEPHIN 1 Gm-D5w 50 ml Bag** 1 G/50 ML IVPB IV SCH (10:00)
[2019-01-22] MEDS: Glucophage 500 MG PO SCH (12:03)
[2019-01-22] MEDS: Lexapro 10 MG PO SCH (12:03)
[2019-01-22] MEDS: Mobic 7.5 MG PO SCH (12:04)
--- NOTE | 2019-01-22 12:15 | XRAY ---
Indication: Choking with meals. Modified barium swallow study was performed by the Department of speech therapy with fluoroscopic assistance provided. Patient ingested multiple consistencies of liquids. Full report and recommendations will be reported separately. Approximately 2.0 minute fluoroscopy used.
[2019-01-22 12:20] VITALS: BP 135/61; PULSE 83
--- NOTE | 2019-01-22 13:10 | PCM.SSS ---
History of Present Illness - Chief Complaint Chief Complaint: altered mental status History of Present Illness: 88-year-old white female with history of chronic dementia, hyperlipidemia, high blood pressure, depression, chronic lumbar pain Patient arrives with complaints at the [facility] that patient was difficult to wake up she apparently required's sternal rub to wake her up yesterday and today she's had a fever at home. Family feels like the patient is "more sluggish" than normal Patient apparently does not walk she is chronically demented - Review of Systems Constitutional: No Fever, No Chills Eyes: No Symptoms Ears, Nose, & Throat: No Symptoms Respiratory: No Cough, No Short Of Breath Cardiac: No Chest Pain, No Edema, No Syncope Abdominal/Gastrointestinal: No Abdominal Pain, No Nausea, No Vomiting, No Diarrhea Genitourinary Symptoms: No Dysuria Musculoskeletal: No Back Pain, No Neck Pain Skin: No Rash Neurological: No Dizziness, No Focal Weakness, No Sensory Changes Psychological: No Symptoms Endocrine: No Symptoms Hematologic/Lymphatic: No Symptoms Immunological/Allergic: No Symptoms Medications & Allergies Home Medications: Home Medication List Escitalopram Oxalate 10 mg [Lexapro 10 MG] 10 mg PO DAILY 06/01/15 [History Confirmed 01/21/19] Gabapentin [Neurontin] 300 mg PO HS 06/01/15 [History Confirmed 01/21/19] Metformin HCl 500 mg [Glucophage 500 MG] 1 tab PO DAILY 03/15/16 [History Confirmed 01/21/19] Lorazepam 1 mg [Ativan 1 MG] 0.5 mg PO HS 03/20/16 [History Confirmed 11/10] Meloxicam 7.5 mg [Mobic 7.5 MG] 7.5 mg PO DAILY 03/03/17 [History Confirmed 01/21/19] Acetaminophen [Tylenol] 325 mg PO Q4HPRN PRN 01/21/19 [History Confirmed ] Loperamide HCl 2 mg [Imodium 2 mg] 2 mg PO UD 01/21/19 [History Confirmed 01/21/19] Magnesium Hydroxide [Milk of Magnesia] 400 mg PO DAILY PRN PRN 01/21/19 [ History Confirmed 01/21/19] Phenyleph/Pramoxin/Glycr/W.pet [Preparation H Cream] 5 - 14.4 supp.rect Q8H PRN PRN 01/21/19 [History Confirmed 01/21/19] Sennosides/Docusate Sodium [Senexon-S Tablet] 1 each PO BID PRN PRN 01/21/19 [ History Confirmed 01/21/19] Allergies/Adverse Reactions: Allergies Allergy/AdvReac Type Severity Reaction Status Date / Time latex Allergy Verified 01/21/19 07:45 Penicillins Allergy Verified 01/21/19 07:45 Sulfa (Sulfonamide Allergy Verified 01/21/19 07:45 Antibiotics) - Past Medical History Past Medical History: Yes Neurological History: Alzheimer's Disease, TIA ENT History: No Pertinent History Cardiac History: Angina, Hypertension Respiratory History: No Pertinent History Endocrine Medical History: No Pertinent History Musculoskelatal History: No Pertinent History GI Medical History: No Pertinent History History: Other Pyscho-Social History: Depression Reproductive Disorders: No Pertinent History Comment: chronic lumbar pain, rip hip arthroplasty, left shoulder repair - Female History Are you now?: No - Past Surgical History Past Surgical History: Yes Neuro Surgical History: No Pertinent History Cardiac History: No Pertinent History Respiratory Surgery: No Pertinent History GI Surgical History: No Pertinent History Genitourinary Surgical Hx: No Pertinent History Musculskeletal Surgical Hx: Joint Replacement Female Surgical History: Hysterectomy Other Surgical History: right hip replacement, left shoulder replacement, - Social History Smoking Status: Never smoker Exposure to second hand smoke: No Alcohol: None Drug Use: none Significant Family History: no pertinent family hx - Physical Exam Vital Signs: Vital Signs - 24 hr Temp Pulse Resp BP Pulse Ox 01/22/19 12:00 97.8 F 83 16 135/61 01/22/19 08:00 98.6 F 82 18 143/62 94 L 01/22/19 07:23 94 L 01/22/19 04:15 99.4 F 72 20 128/58 95 01/22/19 00:13 99.9 F 91 H 18 133/56 96 01/21/19 20:08 99.9 F 88 18 115/72 94 L 01/21/19 20:05 93 L General Appearance: no apparent distress, alert Neurologic Exam: alert, oriented x 3, cooperative, normal mood/affect, nml cerebellar function, nml station & gait, sensation nml, No motor deficits Eye Exam: PERRL/EOMI, eyes nml inspection Ears, Nose, Throat Exam: normal ENT inspection, TMs normal, pharynx normal, moist mucous membranes Neck Exam: normal inspection, non-tender, supple, full range of motion Respiratory Exam: normal breath sounds, lungs clear, No respiratory distress Cardiovascular Exam: regular rate/rhythm, normal heart sounds, normal peripheral pulses Gastrointestinal/Abdomen Exam: soft, normal bowel sounds, No tenderness, No mass Back Exam: normal inspection, normal range of motion, No CVA tenderness, No vertebral tenderness Extremity Exam: normal inspection, normal range of motion, pelvis stable Skin Exam: normal color, warm, dry, No rash Lymphatic Exam: No adenopathy Results - Labs Lab/Micro Results: Accuchecks Date 01/22/19 Date 01/21/19 Date 01/21/19 Time 11:30 Time 07:30 Time 16:30 Accucheck Value: 112 Accucheck Value: 95 Accucheck Value: 97 Accucheck Value: 145 Lab Results-Last 24 Hours 01/21/19 01/21/19 01/21/19 Range/Units 07:30 14:15 17:05 WBC (4.0-10.5) K/mm3 RBC (4.1-5.4) M/mm3 Hgb (12.0-16.0) gm/dl Hct (35-47) % MCV (78-100) fl MCH (26-32) pg MCHC (32-36) g/dl RDW (11.5-14.0) % Plt Count (150-450) K/mm3 MPV (6-9.5) fl Gran % (36.0-66.0) % Eos # (Auto) (0-0.5) Absolute Lymphs (auto) (1.0-4.6) Absolute Monos (auto) (0.0-1.3) Lymphocytes % (24.0-44.0) % Monocytes % (0.0-12.0) % Eosinophils % (0.00-5.0) % Basophils % (0.0-0.4) % Absolute Granulocytes (1.4-6.9) Basophils # (0-0.4) Sodium (137-145) mmol/L Potassium (3.5-5.1) mmol/L Chloride (98-107) mmol/L Carbon Dioxide (22-30) mmol/L Anion Gap (5-15) MEQ/L BUN (7-17) mg/dL Creatinine (0.52-1.04) mg/dL Estimated GFR ML/MIN Glucose (74-106) mg/dL Hemoglobin A1c 5.19 (4.5-6.0) % Calcium (8.4-10.2) mg/dL Total Bilirubin (0.2-1.3) mg/dL AST (14-36) U/L ALT (0-35) U/L Alkaline Phosphatase (38-126) U/L Troponin I 0.013 0.015 (0.000-0.034) ng/mL Serum Total Protein (6.3-8.2) g/dL Albumin (3.5-5.0) g/dL 01/21/19 01/22/19 01/22/19 Range/Units 20:23 05:32 05:32 WBC 9.7 (4.0-10.5) K/mm3 RBC 3.71 L (4.1-5.4) M/mm3 Hgb 11.2 L (12.0-16.0) gm/dl Hct 35.2 (35-47) % MCV 94.9 (78-100) fl MCH 30.1 (26-32) pg MCHC 31.8 L (32-36) g/dl RDW 12.7 (11.5-14.0) % Plt Count 234 (150-450) K/mm3 MPV 10.9 H (6-9.5) fl Gran % 72.6 H (36.0-66.0) % Eos # (Auto) 0.43 (0-0.5) Absolute Lymphs (auto) 1.44 (1.0-4.6) Absolute Monos (auto) 0.78 (0.0-1.3) Lymphocytes % 14.8 L (24.0-44.0) % Monocytes % 8.0 (0.0-12.0) % Eosinophils % 4.4 (0.00-5.0) % Basophils % 0.2 (0.0-0.4) % Absolute Granulocytes 7.07 H (1.4-6.9) Basophils # 0.02 (0-0.4) Sodium 142 (137-145) mmol/L Potassium 3.7 (3.5-5.1) mmol/L Chloride 107 (98-107) mmol/L Carbon Dioxide 25 (22-30) mmol/L Anion Gap 13.6 (5-15) MEQ/L BUN 22 H (7-17) mg/dL Creatinine 0.68 (0.52-1.04) mg/dL Estimated GFR > 60.0 ML/MIN Glucose 95 (74-106) mg/dL Hemoglobin A1c (4.5-6.0) % Calcium 8.8 (8.4-10.2) mg/dL Total Bilirubin 0.80 (0.2-1.3) mg/dL AST 20 (14-36) U/L ALT 10 (0-35) U/L Alkaline Phosphatase 51 (38-126) U/L Troponin I 0.016 (0.000-0.034) ng/mL Serum Total Protein 7.0 (6.3-8.2) g/dL Albumin 3.4 L (3.5-5.0) g/dL Microbiology 01/21/19 08:00 Blood Culture - Preliminary Blood NO GROWTH TO DATE 01/21/19 07:53 Blood Culture - Preliminary Blood NO GROWTH TO DATE 01/21/19 07:45 Urine Culture - Preliminary Clean Catch Midstream GRAM NEGATIVE ID AND SENSITIVITY PENDING Accuchecks Date 01/22/19 Date 01/21/19 Date 01/21/19 Time 11:30 Time 07:30 Time 16:30 Accucheck Value: 112 Accucheck Value: 95 Accucheck Value: 97 Accucheck Value: 145 - Radiology Impressions Radiology Exams & Impressions: Radiology Procedures Category Date Time Status CHEST 1 VIEW (PORTABLE) Stat Exams 01/21/19 07:27 Completed MODIFIED BARIUM SWALLOW EXAM Routine Exams 01/22/19 11:00 Completed Assessment/Plan (1) Altered mental status Current Visit: Yes Status: Acute Qualifiers: Altered mental status type: unspecified Qualified Code(s): R41.82 - Altered mental status, unspecified Code(s): R41.82 - ALTERED MENTAL STATUS, UNSPECIFIED (2) Dehydration Current Visit: Yes Status: Acute Code(s): E86.0 - DEHYDRATION (3) Elevated serum lactate dehydrogenase Current Visit: Yes Status: Acute Code(s): R74.0 - NONSPEC ELEV OF LEVELS OF TRANSAMNS & LACTIC ACID DEHYDRGNSE (4) UTI (urinary tract infection) Current Visit: Yes Status: Acute Qualifiers: Urinary tract infection type: site unspecified Hematuria presence: without hematuria Qualified Code(s): N39.0 - Urinary tract infection, site not specified Code(s): N39.0 - URINARY TRACT INFECTION, SITE NOT SPECIFIED (5) Dementia arising in the senium and presenium Current Visit: No Status: Acute Code(s): F03.90 - UNSPECIFIED DEMENTIA WITHOUT BEHAVIORAL DISTURBANCE Hospital Summary - Hospital Course Hospital Course: Last Vital Signs Temp 97.8 F 01/22/19 12:00 Pulse 83 01/22/19 12:00 Resp 16 01/22/19 12:00 BP 135/61 01/22/19 12:00 Pulse Ox 94 L 01/22/19 08:00 Allergies latex Allergy (Verified 01/21/19 07:45) Penicillins Allergy (Verified 01/21/19 07:45) Sulfa (Sulfonamide Antibiotics) Allergy (Verified 01/21/19 07:45) Active Medications Acetaminophen (Tylenol 325 Mg) 325 mg PO Q4HPRN PRN PRN Reason: PAIN, FEVER, HEADACHE Stop: 02/20/19 14:40 Escitalopram Oxalate (Lexapro 10 Mg) 10 mg PO DAILY JACK Stop: 02/20/19 14:59 Last Admin: 01/22/19 12:03 Dose: 10 mg Gabapentin (Neurontin 300 Mg) 300 mg PO HS JACK Stop: 02/20/19 21:59 Last Admin: 01/21/19 21:42 Dose: 300 mg Ceftriaxone Sodium/Dextrose (Rocephin 1 Gm-D5w 50 Ml Bag) 1 g in 50 mls @ 100 mls/hr IV Q24H10 JACK Stop: 02/21/19 09:59 Last Admin: 01/22/19 09:40 Dose: 100 mls/hr Sodium Chloride (Sodium Chloride 0.9% 1000 Ml) 1,000 mls @ 75 mls/hr IV .[id number] JACK Stop: 02/21/19 09:59 Loperamide HCl (Imodium 2 Mg) 0 mg PO PRN PRN Stop: 02/20/19 14:44 Lorazepam (Ativan 0.5 Mg) 0.5 mg PO HS [facility] Stop: 02/20/19 21:59 Last Admin: 01/21/19 21:42 Dose: 0.5 mg Magnesium Hydroxide (Milk Of Magnesia 30 Ml) 30 ml PO DAILY PRN PRN PRN Reason: CONSTIPATION Stop: 02/20/19 14:40 Meloxicam (Mobic 7.5 Mg) 7.5 mg PO DAILY [facility] Stop: 02/20/19 14:59 Last Admin: 01/22/19 12:04 Dose: 7.5 mg Metformin HCl (Glucophage 500 Mg) 500 mg PO DAILY [facility] Stop: 02/20/19 14:59 Last Admin: 01/22/19 12:03 Dose: 500 mg Phenyleph/Shark Oil/Min Oil/Petrol (Preparation H Ointment) 3 gm RC Q8H PRN PRN Stop: 02/20/19 14:59 Senna/Docusate Sodium (Senokot-S Tablet) 1 udtab PO BID PRN PRN PRN Reason: CONSTIPATION Stop: 02/20/19 14:40 Intake & Output 01/22/19 01/23/19 11:59 11:59 Intake Total 2875 322 Output Total 0 Balance 2875 322 Weight 115.1 kg Orders 01/21/19 14:41 Acetaminophen 325 mg [Tylenol 325 mg] 325 mg PO Q4HPRN PRN Magnesium Hydroxide 30 ml [Milk of Magnesia 30 ml] 30 ml PO DAILY PRN PRN Senna/Docusate Sodium Tab [Senokot-S Tablet] 1 udtab PO BID PRN PRN 01/21/19 14:45 Loperamide HCl 2 mg [Imodium 2 mg] 0 mg PO PRN PRN 01/21/19 15:00 Escitalopram Oxalate 10 mg [Lexapro 10 MG] 10 mg PO DAILY Meloxicam 7.5 mg [Mobic 7.5 MG] 7.5 mg PO DAILY Metformin HCl 500 mg [Glucophage 500 MG] 500 mg PO DAILY Phenylephrine/Shk Lv/Mo/Pet [PREPARATION H Ointment] 3 gm RC Q8H PRN PRN 01/21/19 16:31 ACCUCHECK [Accucheck] ACHS 01/21/19 22:00 Gabapentin 300 mg [Neurontin 300 mg] 300 mg PO HS Lorazepam 0.5 mg [Ativan 0.5 MG] 0.5 mg PO HS 01/21/19 Dinner Pureed Diet 01/22/19 10:00 NaCl 0.9% 1000 ml [Sodium Chloride 0.9% 1000 ML] 1,000 ml IV 75 mls/hr Lab Tests 01/21/19 01/21/19 01/21/19 07:30 14:15 17:05 WBC RBC Hgb Hct MCV MCH MCHC RDW Plt Count MPV Gran % Eos # (Auto) Absolute Lymphs (auto) Absolute Monos (auto) Lymphocytes % Monocytes % Eosinophils % Basophils % Absolute Granulocytes Basophils # Sodium Potassium Chloride Carbon Dioxide Anion Gap BUN Creatinine Estimated GFR Glucose Hemoglobin A1c 5.19 Calcium Total Bilirubin AST ALT Alkaline Phosphatase Troponin I 0.013 0.015 Serum Total Protein Albumin 01/21/19 01/22/19 01/22/19 20:23 05:32 05:32 WBC 9.7 RBC 3.71 L Hgb 11.2 L Hct 35.2 MCV 94.9 MCH 30.1 MCHC 31.8 L RDW 12.7 Plt Count 234 MPV 10.9 H Gran % 72.6 H Eos # (Auto) 0.43 Absolute Lymphs (auto) 1.44 Absolute Monos (auto) 0.78 Lymphocytes % 14.8 L Monocytes % 8.0 Eosinophils % 4.4 Basophils % 0.2 Absolute Granulocytes 7.07 H Basophils # 0.02 Sodium 142 Potassium 3.7 Chloride 107 Carbon Dioxide 25 Anion Gap 13.6 BUN 22 H Creatinine 0.68 Estimated GFR > 60.0 Glucose 95 Hemoglobin A1c Calcium 8.8 Total Bilirubin 0.80 AST 20 ALT 10 Alkaline Phosphatase 51 Troponin I 0.016 Serum Total Protein 7.0 Albumin 3.4 L Microbiology 01/21/19 08:00 Blood Blood Culture - Preliminary NO GROWTH TO DATE 01/21/19 07:53 Blood Blood Culture - Preliminary NO GROWTH TO DATE 01/21/19 07:45 Clean Catch Midstream Urine Culture - Preliminary GRAM NEGATIVE ID AND SENSITIVITY PENDING - Vitals & Intake/Output Vital Signs: Vital Signs Temperature 97.8 F 01/22/19 12:00 Pulse Rate 83 01/22/19 12:00 Respiratory Rate 16 01/22/19 12:00 Blood Pressure 135/61 01/22/19 12:00 O2 Sat by Pulse Oximetry 94 L 01/22/19 08:00 Intake & Output: Intake & Output 01/20/19 01/21/19 01/22/19 01/23/19 11:59 11:59 11:59 11:59 Intake Total 2875 Output Total 0 Balance 2875 Weight 71.7 kg 115.1 kg - Lab Result Diagrams: 01/22/19 05:32 01/22/19 05:32 Lab Results-Last 24 Hrs: Accuchecks Date 01/22/19 Date 01/21/19 Date 01/21/19 Time 11:30 Time 07:30 Time 16:30 Accucheck Value: 112 Accucheck Value: 95 Accucheck Value: 97 Accucheck Value: 145 Lab Results-Last 24 Hours 01/21/19 01/21/19 01/21/19 Range/Units 07:30 14:15 17:05 WBC (4.0-10.5) K/mm3 RBC (4.1-5.4) M/mm3 Hgb (12.0-16.0) gm/dl Hct (35-47) % MCV (78-100) fl MCH (26-32) pg MCHC (32-36) g/dl RDW (11.5-14.0) % Plt Count (150-450) K/mm3 MPV (6-9.5) fl Gran % (36.0-66.0) % Eos # (Auto) (0-0.5) Absolute Lymphs (auto) (1.0-4.6) Absolute Monos (auto) (0.0-1.3) Lymphocytes % (24.0-44.0) % Monocytes % (0.0-12.0) % Eosinophils % (0.00-5.0) % Basophils % (0.0-0.4) % Absolute Granulocytes (1.4-6.9) Basophils # (0-0.4) Sodium (137-145) mmol/L Potassium (3.5-5.1) mmol/L Chloride (98-107) mmol/L Carbon Dioxide (22-30) mmol/L Anion Gap (5-15) MEQ/L BUN (7-17) mg/dL Creatinine (0.52-1.04) mg/dL Estimated GFR ML/MIN Glucose (74-106) mg/dL Hemoglobin A1c 5.19 (4.5-6.0) % Calcium (8.4-10.2) mg/dL Total Bilirubin (0.2-1.3) mg/dL AST (14-36) U/L ALT (0-35) U/L Alkaline Phosphatase (38-126) U/L Troponin I 0.013 0.015 (0.000-0.034) ng/mL Serum Total Protein (6.3-8.2) g/dL Albumin (3.5-5.0) g/dL 01/21/19 01/22/19 01/22/19 Range/Units 20:23 05:32 05:32 WBC 9.7 (4.0-10.5) K/mm3 RBC 3.71 L (4.1-5.4) M/mm3 Hgb 11.2 L (12.0-16.0) gm/dl Hct 35.2 (35-47) % MCV 94.9 (78-100) fl MCH 30.1 (26-32) pg MCHC 31.8 L (32-36) g/dl RDW 12.7 (11.5-14.0) % Plt Count 234 (150-450) K/mm3 MPV 10.9 H (6-9.5) fl Gran % 72.6 H (36.0-66.0) % Eos # (Auto) 0.43 (0-0.5) Absolute Lymphs (auto) 1.44 (1.0-4.6) Absolute Monos (auto) 0.78 (0.0-1.3) Lymphocytes % 14.8 L (24.0-44.0) % Monocytes % 8.0 (0.0-12.0) % Eosinophils % 4.4 (0.00-5.0) % Basophils % 0.2 (0.0-0.4) % Absolute Granulocytes 7.07 H (1.4-6.9) Basophils # 0.02 (0-0.4) Sodium 142 (137-145) mmol/L Potassium 3.7 (3.5-5.1) mmol/L Chloride 107 (98-107) mmol/L Carbon Dioxide 25 (22-30) mmol/L Anion Gap 13.6 (5-15) MEQ/L BUN 22 H (7-17) mg/dL Creatinine 0.68 (0.52-1.04) mg/dL Estimated GFR > 60.0 ML/MIN Glucose 95 (74-106) mg/dL Hemoglobin A1c (4.5-6.0) % Calcium 8.8 (8.4-10.2) mg/dL Total Bilirubin 0.80 (0.2-1.3) mg/dL AST 20 (14-36) U/L ALT 10 (0-35) U/L Alkaline Phosphatase 51 (38-126) U/L Troponin I 0.016 (0.000-0.034) ng/mL Serum Total Protein 7.0 (6.3-8.2) g/dL Albumin 3.4 L (3.5-5.0) g/dL Micro Results-Entire Visit: Microbiology 01/21/19 08:00 Blood Culture - Preliminary Blood NO GROWTH TO DATE 01/21/19 07:53 Blood Culture - Preliminary Blood NO GROWTH TO DATE 01/21/19 07:45 Urine Culture - Preliminary Clean Catch Midstream GRAM NEGATIVE ID AND SENSITIVITY PENDING Accuchecks Date 01/22/19 Date 01/21/19 Date 01/21/19 Time 11:30 Time 07:30 Time 16:30 Accucheck Value: 112 Accucheck Value: 95 Accucheck Value: 97 Accucheck Value: 145 - Radiology Exams Ordered Rad Exams-Entire Visit: Radiology Procedures Category Date Time Status CHEST 1 VIEW (PORTABLE) Stat Exams 01/21/19 07:27 Completed MODIFIED BARIUM SWALLOW EXAM Routine Exams 01/22/19 11:00 Completed - Procedures and Test Procedures and Tests throughout Hospitalization: Therapy Orders & Screens 01/21/19 10:46 Respiratory Therapy Consult ROUTINE Comment: Reason For Exam: 01/21/19 12:20 OT Screen per Nursing Assess ONCE Comment: Protocol Order Physician Instructions: Greater than 3 points order OT Admission Screening Reason For Exam: Triggered on Admission Diagnosis: altered mental status Open Wound/Cellutlitis/Pressure Ulcers: No Acute Fx/ORIF/Change in wt bearing status: No Severe MUSCULOSKELETAL pain: No ADL Dysfunction: Yes Acute CVA w/Hemiparesis/Hemiplegia: No Decreased Functional Mobility/Strength: Yes Sprain/Strain: No Acute Post-op Mobility Dysfunction: No Total Points: 4 PT Screen per Nursing Assess ONCE Comment: Protocol Order Physician Instructions: Greater than 3 points order PT Admission Screenin Reason For Exam: Triggered on Admission Diagnosis: altered mental status Open Wound/Cellutlitis/Pressure Ulcers: No Acute Fx/ORIF/Change in wt bearing status: No Severe MUSCULOSKELETAL pain: No ADL Dysfunction: Yes Acute CVA w/Hemiparesis/Hemiplegia: No Decreased Functional Mobility/Strength: Yes Sprain/Strain: No Acute Post-op Mobility Dysfunction: No Total Points: 4 01/21/19 14:40 ST Eval & Treat (MD Order) .as ordered Comment: Physician Instructions: Reason For Exam: Pt. reported choking Evaluate: Yes Treat: Yes Reason for Eval: Pt. reported choking Diagnosis: altered mental status - Discharge Discharge Date: 01/22/19 Disposition: Home, Self-Care Condition: Fair Prescriptions: No Action Gabapentin [Neurontin] 300 mg PO HS Escitalopram Oxalate 10 mg [Lexapro 10 MG] 10 mg PO DAILY Metformin HCl 500 mg [Glucophage 500 MG] 1 tab PO DAILY Lorazepam 1 mg [Ativan 1 MG] 0.5 mg PO HS Meloxicam 7.5 mg [Mobic 7.5 MG] 7.5 mg PO DAILY Magnesium Hydroxide [Milk of Magnesia] 400 mg PO DAILY PRN PRN PRN Reason: Constipation Loperamide HCl 2 mg [Imodium 2 mg] 2 mg PO UD Phenyleph/Pramoxin/Glycr/W.pet [Preparation H Cream] 5 - 14.4 supp.rect Q8H PRN PRN PRN Reason: Pain And/Or Fever Acetaminophen [Tylenol] 325 mg PO Q4HPRN PRN PRN Reason: Pain, Fever, Headache Sennosides/Docusate Sodium [Senexon-S Tablet] 1 each PO BID PRN PRN PRN Reason: Constipation Follow up with: PUMA SPENCER MD [Primary Care Provider] - 1 Week
== END 2019-01-22 14:25 | disposition home or self-care (01) ==
LOC: ED 07:10 → MED SURG 10:06
PROVIDERS: ADMIT General Practice; ATTEND General Practice
DX: R41.82 Altered mental status, unspecified (principal); E86.0 Dehydration; N39.0 Urinary tract infection, site not specified; R74.0 Nonspecific elevation of levels of transaminase and lactic acid dehydrogenase [LDH]; F03.90 Unspecified dementia, unspecified severity, without behavioral disturbance, psychotic disturbance, mood disturbance, and anxiety; Z79.899 Other long term (current) drug therapy
CPT/HCPCS: 36415; 71045; 74230; 80053; 81001; 82150; 82805; 82962; 83036; 83605; 83690; 84484; 85025; 87040; 87077; 87086; 87186; 93005; 94760; 96365; 99285; G0378; J0696; A9270-GY